=== PATIENT | female | born 1955 | race Caucasian/White ===

== ENCOUNTER 2016-09-25 17:01 | Observation (INO) | payer BC, OTHER ==
[~2016-09-25] VITALS: Ht 167.6 cm; Wt 94.6 kg
[~2016-09-25 17:01] MED LIST: ACET1TAB12 PO; ASPI-557 PO; ATEN100T77 PO; BUPR300T57 PO; CHOL10003 PO; CYCL-83 PO; DULO60CA25 PO; LEVO25TA4 PO; LOSA100T44 PO; MAGN400C PO; MELO-28 PO; MULT-37 PO; OMEP40CA11 PO; ONDA4TAB4 PO
--- OUTSIDE RECORDS SUMMARY | 2016-09-25 17:07 | XMS REPORT ---
Author Author [facility]. Organization [facility] Address [address] [place] [address] Phone [phone] Summary purpose CCDA Sent to [facility] Chief Complaint and Reason for Visit Admit Diagnosis 1 JOINT PAIN-MULT JTS Problem list No authorized problems tracked for continuity of care are available for this visit. Encounters No authorized problems tracked for encounter diagnoses are available for this visit. Medications No home medications recorded for this patient visit Allergies, adverse reactions, alerts No allergy information is available for this patient. Immunizations No immunizations recorded for this patient visit Relevant diagnostic tests and/or laboratory data RESULTS [facility] [id number] Result Normal Range Units Sed Rate (ESR) 5 0-20 MM/hr. History of procedures Procedure Code Code Type Description Date Performed Performing Physician 48195 CPT-4 RBC SED RATE AUTOMATED 10-18-2014 RADHA MAHONEY Functional status No functional or cognitive status observations are available for this visit. Vital signs No authorized vital signs are available for this visit. Social history No Social History or smoking status observations were recorded for this visit. ( Unknown if ever smoked.) Treatment Plan No treatment plan text is available for this visit. Hospital discharge instructions No discharge instruction text is available for this visit.
--- OUTSIDE RECORDS SUMMARY | 2016-09-25 17:07 | XMS REPORT ---
Author Author [facility]. Organization [facility] Address [address] [place] [address] Phone [phone] Summary purpose CCDA Sent to [facility] Chief Complaint and Reason for Visit No authorized Reason for Visit (Admitting Diagnosis) is available for this visit. Problem list No authorized problems tracked for [...] Relevant diagnostic tests and/or laboratory data RESULTS [facility] [id number] Result Normal Range Units Free T4 0.81 0.75-1.54 ng/dl TSH 3.11 0.50-6.00 uIU/mL History of procedures No procedures recorded for this patient visit. Functional status No functional or cognitive status [...]
--- OUTSIDE RECORDS SUMMARY | 2016-09-25 17:07 | XMS REPORT | Continuity of Care Document ---
Author Author [facility] Organization [facility] Address Unknown Phone Unavailable Allergies Medications Problems Date Dx Coded Attending Type Code Diagnosis Diagnosed By 05/28/2010 D 780.79 OTHER MALAISE & FATIGUE 06/25/2010 D 782.1 NONSPECIF SKIN ERUPT NEC 12/10/2010 D 455.3 EXT HEMORRHOID W/O COMPL 12/10/2010 D 569.3 RECTAL ANAL HEMORRHAGE 05/27/2011 D V72.83 OTHER SPECIF PRE-OP EXAM 08/06/2011 D 780.79 OTHER MALAISE & FATIGUE 11/04/2012 URVASHI RICHTER V72.83 OTHER SPECIF PRE-OP EXAM 03/15/2014 RADHA SIERRA 244.9 HYPOTHYROIDISM NOS 10/18/2014 RADHA SIERRA 719.49 JOINT PAIN-MULT JTS 09/13/2015 D R29.818 Other symptoms and signs involving the nervous system 09/13/2015 A R29.898 Oth symptoms and signs involving the musculoskeletal system Procedures Code [place] [address] COMPLETE CBC, AUTOMATED HOWARD DAMIAN MD 05/28/2010 03034 URINALYSIS, AUTO, W/O SCOPE HOWARD DAMIAN MD 06/25/2010 24401 ASSAY OF CK (CPK) HOWARD DAMIAN MD 06/25/2010 39739 RBC SED RATE, NONAUTOMATED HOWARD DAMINA MD 06/25/2010 78872 ANTINUCLEAR ANTIBODIES HOWARD DAMIAN MD 06/25/2010 89139 DIAGNOSTIC COLONOSCOPY HOWARD DAMIAN MD 12/10/2010 J2250 MIDAZOLAM HCL INJ/1MG HOWARD DAMIAN MD 12/10/2010 J3010 FENTANYL CITRATE INJECITON HOWARD DAMIAN MD 12/10/2010 J3490 Drugs unclassified injection HOWARD DAMIAN MD 12/10/2010 96936 METABOLIC PANEL TOTAL CA HOWARD DAMIAN MD 05/27/2011 85433 COMPLETE CBC, AUTOMATED RICKIE NÚÑEZ, HOWARD Diana 05/27/2011 47140 COMPREHEN METABOLIC PANEL RICKIE NÚÑEZ , HOWARD Diana 08/06/2011 55617 ASSAY THYROID STIM HORMONE RICKIE NÚÑEZ , HOWARD Diana 08/06/2011 95469 COMPLETE CBC, AUTOMATED RICKIE NÚÑEZ, HOWARD Diana 08/06/2011 93648 METABOLIC PANEL TOTAL CA DUSTIN ATKINS, URVASHI 11/04/2012 66205 COMPLETE CBC, AUTOMATED DUSTIN ATKINS, URVASHI 11/04/2012 90696 ASSAY THYROID STIM HORMONE DENZEL ATKINS, RADHA L 03/15/2014 89555 RBC SED RATE, AUTOMATED DENZEL ATKINS, RADHA L 10/18/2014 47252 METABOLIC PANEL TOTAL CA RICKIE NÚÑEZ, HOWARD Diana 09/13/2015 Results Test Result Range CBC - 11/04/12 12:10 Granulocyte # 3.3 x10^3 3.0-7.0 Granulocyte % 57.1 % 50-70 HCT 41.0 % 37.0-47.0 HGB 13.5 G/DL 12.0-16.0 Lymph # 2.1 x10^3 1.0-4.0 Lymph % 37.5 % 20-50 MCH 29.7 PG 27.0-31.0 MCHC 32.8 G/DL 32.0-36.0 MCV 90 FL 81-99 Woods # 0.3 x10^3 0.0-0.8 Woods % 5.4 % 1.0-9.0 MPV 8.0 FL 6.0-10.0 Platelet 236 x10^3 150-400 RBC 4.54 x10^3 4.20-5.40 RDW 13.1 % 10.0-13.0 WBC 5.7 x10^3 4.8-10.8 Basic Metabolic Panel - 11/04/12 12:10 Sodium 138 MMOLL 134-145 Potassium 4.0 MMOLL 3.6-5.0 Chloride 99 MMOLL 98-107 CO2 30 MMOLL 22-30 Glucose 92 MG/DL 75-110 BUN 18 MG/DL 9-20 Creatinine .8 MG/DL 0.8-1.7 Calcium 9.3 MG/DL 8.4-10.2 Free T4 - 03/15/14 11:45 Free T4 0.81 NG/DL 0.75-1.54 TSH - 03/15/14 11:45 TSH 3.11 UIUML 0.50-6.00 Sed Rate (ESR) - 10/18/14 17:14 Sed Rate (ESR) 5 MM/hr 0-20 Basic Metabolic Panel - 09/13/15 11:31 Sodium 142 MMOLL 134-145 Potassium 4.1 MMOLL 3.6-5.0 Chloride 102 MMOLL 98-107 CO2 27 MMOLL 22-30 Glucose 119 MG/DL 75-110 BUN 16 MG/DL 9-20 Creatinine .80 MG/DL 0.8-1.7 Calcium 9.1 MG/DL 8.4-10.2 Encounters ACCT No. Visit Date/Time Discharge Status Pt. Type Provider Facility Loc./Unit Complaint [id number] 10/18/2014 16:42:00 10/18/2014 16:42:00 DIS Outpatient DENZEL ATKINS [facility] [id number] 03/15/2014 13:17:00 03/15/2014 13:17:00 DIS Outpatient DENZEL ATKINS [facility] [id number] 11/04/2012 13:16:00 11/04/2012 13:16:00 DIS Outpatient DUSTIN ATKINS [facility] [id number] 09/13/2015 11:31:00 Document Registration [id number] 08/06/2011 10:14:00 Document Registration [id number] 05/27/2011 06:41:00 Document Registration [id number] 12/10/2010 07:30:00 Document Registration [id number] 06/25/2010 08:47:00 Document Registration [id number] 05/28/2010 12:38:00 Document Registration
--- OUTSIDE RECORDS SUMMARY | 2016-09-25 17:07 | XMS REPORT ---
Author Author [facility] Organization [facility] Address [address] [place] [address] Phone [phone] Summary purpose CCDA Sent to [facility] Chief Complaint and Reason for Visit Admit Diagnosis 1 HYPOTHYROIDISM NOS Problem list No authorized problems tracked for [...] and/or laboratory data RESULTS [facility] [id number] Result Normal Range Units Free T4 0.81 0.75-1.54 ng/dl TSH 3.11 0.50-6.00 uIU/mL History of procedures Procedure Code Code Type Description Date Performed Performing Physician [id number] CPT-4 ASSAY THYROID STIM HORMONE 03-15-2014 RADHA MAHONEY Functional status No functional or [...]
--- OUTSIDE RECORDS SUMMARY | 2016-09-25 17:07 | XMS REPORT | Continuity of Care Document ---
Author Author [facility] Organization [facility] Address Unknown Phone Unavailable Support Name Relationship Address Phone ALVINO RUANO MD Caregiver [facility] [address] [place] [address] [place] [address] THOMAS HARPER MD Caregiver [address] [place] [address] [place] [phone] HOWARD DAMIAN Caregiver [facility] [address] [place] [address] PATSY KERN Next Of Kin [address] [place] [address] Insurance Providers Payer Name Policy Number Subscriber Name Relationship Benefit Management [facility] [id number] Emily Lord 20 Self Advance Directives Directive Response Recorded Date/Time Advanced Directives Type DNR Documentation DPOA for Healthcare 12/09/13 12: 38pm Ordered Resuscitation Status Full Code 12/09/13 11:25am Resuscitation Documents on File Yes 12/09/13 12:38pm Problems Medical Problems Problem Onset Date Status Palpitations Unknown Active Hx of gastroesophageal reflux (GERD) Unknown Active Epigastric abdominal pain Unknown Active Chronic back pain Unknown Active Chronic neck pain Unknown Active Palpitations Unknown Active Chest pain Unknown Active Hypertension Unknown Active Dyslipidemia Unknown Active Chest discomfort Unknown Active Carotid bruit Unknown Active Medications Medication Dose Route Sig Days/Qty Instructions Order Date Discontinued Date Status Hydralazine/Reserpin/Hctz 1 Tab PO DAILY 04/03/10 11/12/12 Discontinued Fluoxetine Hcl 20 Mg PO DAILY 04/03/10 11/12/12 Discontinued Bupropion Hcl 150 Mg PO EVERY OTHER DAY 04/03/10 11/12/12 Discontinued Simvastatin 40 Mg PO BEDTIME 04/03/10 Active Lisinopril 40 Mg PO DAILY 04/03/10 Active Omeprazole 20 Mg PO TWICE A DAY 04/03/10 11/12/12 Discontinued Hydrocodone Bit/Acetaminophen 1 Tab PO NEEDED 04/03/10 11/12/12 Discontinued Acetaminophen 1,300 Mg PO FOUR TIMES DAILY 06/06/11 11/12/12 Discontinued Imipramine Hcl 10 Mg PO BEDTIME 06/06/11 11/12/12 Discontinued Cholecalciferol 2,000 Unit PO DAILY 06/06/11 Active Omeprazole 40 Mg PO TWICE A DAY 11/12/12 Active Meloxicam 7.5 Mg PO TWICE A DAY 11/12/12 Active Acetaminophen 1,000 Mg PO TWICE A DAY 11/12/12 Active Hydrocodone Bit/Acetaminophen 1-2 Tab PO EVERY 4-6 HOURS PRN PAIN 30 Qty 11/28/13 Active Cyclobenzaprine Hcl 10 Mg PO THREE TIMES A DAY PRN PRN ORDERS Active Bupropion Hcl 150 Mg PO DAILY 12/09/13 Active Duloxetine Hcl 60 Mg PO DAILY 12/09/13 Active Magnesium Oxide 400 Mg PO DAILY 12/09/13 Active Triamterene/Hydrochlorothiazid 1 Cap PO DAILY 12/09/13 Active Atenolol 100 Mg PO BEDTIME 12/09/13 Active Social History Social History Problem Response Recorded Date/Time Smoking Status Never smoker 12/09/2013 12:39pm Chewing Tobacco Status No 12/09/2013 10:23am Hx Substance Use No 12/09/2013 10:23am Hx Alcohol Use No 12/09/2013 10:23am Has the pt used tobacco in the last 12 months No 12/09/2013 12:39pm Query Response Start Date Stop Date Smoking Status Never smoker Hospital Discharge Instructions No hospital discharge instructions. Plan of Care No plan of care. Functional Status Query Response Date Recorded Physical Hygiene Self December 09, 2013 8:25pm Disabilities Visual December 09, 2013 8:25pm Devices Used Glasses December 09, 2013 8:25pm Dressing Self December 09, 2013 8:25pm Ambulation Self December 09, 2013 8:25pm Diet Self December 09, 2013 8:25pm Mental Status Alert Oriented December 09, 2013 8:25pm Disabilities Visual December 09, 2013 8:25pm Devices Used Glasses December 09, 2013 8:25pm Physical Hygiene Self December 09, 2013 8:25pm Dressing Self December 09, 2013 8:25pm Ambulation Self December 09, 2013 8:25pm Diet Self December 09, 2013 8:25pm Allergies, Adverse Reactions, Alerts Allergen Type Severity Reaction Status Last Updated Morphine Allergy Intermediate HIVES/SKIN PEELS Active 12/09/13 Ibuprofen Adverse Reaction Mild Cannot take it due to having stomach problems Active 12/09/13 Cephalexin Adverse Reaction Unknown N/V Active 12/09/13 Doxycycline Allergy Severe THROAT SWELLS Active 12/09/13 Influenza Virus Vacc,Specific Allergy Unknown SWELLING Active 12/09/13 Tramadol Adverse Reaction Mild SWEATS; BP ISSUES Active 12/09/13 Immunizations Name Given Type Hx Influenza Vaccination Y Mar Historical Hx Pneumococcal Vaccination No Historical Hx Influenza Vaccination Y Mar Historical Vital Signs Acute Vital Signs Vital Response Date/Time Temperature (Fahrenheit) 95.9 deg F (96.8 - 99.1) Temperature (Calculated Celsius) 35.80167 degrees C (36.0 - 37.3) Temperature Source Oral Pulse Rate (adult) 73 bpm (60 - 100) Oxygen Delivery Method Room Air Blood Pressure 115/67 mm Hg Blood Pressure Source Automatic Cuff Height 5 ft 6 in Weight 220 lb Body Mass Index 35.0 kg/m^2 Results Test Source Date Result Interp. Ref. Range Comments Activated Partial Thromboplast Time December 09, 2013 10:05am 32.1 SEC N 24- 36 Alanine Aminotransferase (ALT/SGPT) December 09, 2013 10:05am 41 U/L N 9-52 Albumin December 09, 2013 10:05am 4.6 G/DL N 3.5-5.0 Albumin/Globulin Ratio December 09, 2013 10:05am 1.4 RATIO N 1.1-2.2 Alkaline Phosphatase December 09, 2013 10:05am 92 U/L N 38-126 Anion Gap December 09, 2013 10:05am 14 MEQ/L N 5-15 Aspartate Amino Transf (AST/SGOT) December 09, 2013 10:05am 33 U/L N 14-36 BUN/Creatinine Ratio December 09, 2013 10:05am 31 RATIO H 6-26 Basophils # (Auto) December 09, 2013 10:05am 0.0 T/MM3 N 0-0.2 Basophils (%) (Auto) December 09, 2013 10:05am 0.4 % N 0-2 Blood Urea Nitrogen December 09, 2013 10:05am 34.0 MG/DL H 7-17 Calcium Level December 09, 2013 10:05am 9.4 MG/DL N 8.4-10.2 Calculated Osmolality December 09, 2013 10:05am 272 MOSM/KG N 261-280 Carbon Dioxide Level December 09, 2013 10:05am 29 MEQ/L N 22-30 Chloride Level December 09, 2013 10:05am 94 MEQ/L L 98-107 Creatinine December 09, 2013 10:05am 1.1 MG/DL N 0.7-1.2 Eosinophils # (Auto) December 09, 2013 10:05am 0.0 T/MM3 N 0-0.5 Eosinophils (%) (Auto) December 09, 2013 10:05am 0.1 % N 0-4 Globulin December 09, 2013 10:05am 3.2 G/DL N 2.4-3.6 Glucose Level December 09, 2013 10:05am 104 MG/DL N 65-110 Hematocrit December 09, 2013 10:05am 41.7 % N 36-46 Hemoglobin December 09, 2013 10:05am 14.0 GM/DL N 12-16 Lymphocytes # (Auto) December 09, 2013 10:05am 2.3 T/MM3 N 1-4.8 Lymphocytes (%) (Auto) December 09, 2013 10:05am 29.4 % N 23-45 Magnesium Level December 09, 2013 10:05am 1.8 MG/DL N 1.6-2.3 Mean Corpuscular Hemoglobin December 09, 2013 10:05am 30.8 UUG N 26-34 Mean Corpuscular Hemoglobin Concent December 09, 2013 10:05am 33.6 GM/DL N 31-37 Mean Corpuscular Volume December 09, 2013 10:05am 91.6 UM3 N 80-100 Mean Platelet Volume December 09, 2013 10:05am 10.7 UM3 N 9.4-12.4 Monocytes # (Auto) December 09, 2013 10:05am 0.8 T/MM3 N 0-0.8 Monocytes (%) (Auto) December 09, 2013 10:05am 10.5 % H 0-9.0 Mumps Virus IgG Antibody May 18, 2009 9:54am Positive - Neutrophils # (Auto) December 09, 2013 10:05am 4.6 T/MM3 N 1.8-7.7 Neutrophils (%) (Auto) December 09, 2013 10:05am 59.5 % N 33-66 Platelet Count December 09, 2013 10:05am 244 T/MM3 N 130-400 Potassium Level December 09, 2013 10:05am 3.5 MEQ/L L 3.6-5 Prothromb Time International Ratio December 09, 2013 10:05am 0.97 N 0.81- 1.09 THERAPUTIC RANGE=2.00-3.00 FOR ANTI-THROMBOSIS THERAPUTIC RANGE=2.50- 3.50 FOR IMPLANTED VALVE RDW Standard Deviation December 09, 2013 10:05am 41.3 FL N 36.9-50.2 Red Blood Count December 09, 2013 10:05am 4.55 M/MM3 N 4.00-5.20 Rubella Screen May 18, 2009 9:54am Negative - Rubeola (Measles) IgG Antibody May 18, 2009 9:54am Positive - Sodium Level December 09, 2013 10:05am 137 MEQ/L N 134-144 Thyroid Stimulating Hormone (TSH) December 09, 2013 10:05am 4.79 MIU/L H 0.47-4.68 Total Bilirubin December 09, 2013 10:05am 0.50 MG/DL N 0.20-1.30 Total Protein December 09, 2013 10:05am 7.8 G/DL N 6.3-8.2 Troponin I December 09, 2013 3:45pm < 0.012 ng/ml 0-0.12 Urine Bacteria December 09, 2013 3:30pm 1+ H - Has specimen been collected/ obtained? Y Urine Bilirubin December 09, 2013 3:30pm Negative - Has specimen been collected/obtained? Y Urine Blood December 09, 2013 3:30pm Trace-lysed H - Has specimen been collected/obtained? Y Urine Collection Type December 09, 2013 3:30pm Cleancatch-midstream - Has specimen been collected/obtained? Y Urine Color December 09, 2013 3:30pm Yellow - Has specimen been collected /obtained? Y Urine Glucose (UA) December 09, 2013 3:30pm Negative - Has specimen been collected/obtained? Y Urine Ketones December 09, 2013 3:30pm Negative - Has specimen been collected/obtained? Y Urine Leukocyte Esterase December 09, 2013 3:30pm 3+ H - Has specimen been collected/obtained? Y Urine Nitrite December 09, 2013 3:30pm Negative - Has specimen been collected/obtained? Y Urine Protein December 09, 2013 3:30pm Negative - Has specimen been collected/obtained? Y Urine RBC December 09, 2013 3:30pm None seen /HPF - Has specimen been collected/obtained? Y Urine Specific [place] December 09, 2013 3:30pm <=1.005 L - Has specimen been collected/obtained? Y Urine Squamous Epithelial Cells December 09, 2013 3:30pm 20-50 - Has specimen been collected/obtained? Y Urine Turbidity December 09, 2013 3:30pm Clear - Has specimen been collected/obtained? Y Urine Urobilinogen December 09, 2013 3:30pm 0.2 EU/DL - Has specimen been collected/obtained? Y Urine WBC December 09, 2013 3:30pm 50-200 /HPF H - Has specimen been collected/obtained? Y Urine WBC Clumps December 09, 2013 3:30pm Few - Has specimen been collected/obtained? Y Urine pH December 09, 2013 3:30pm 6.5 - Has specimen been collected/ obtained? Y White Blood Count December 09, 2013 10:05am 7.7 T/MM3 N 4.5-11.0 Chemistry Specimen Hemolysis December 09, 2013 3:45pm < 15 0-25 0-25: No Hemolysis.26-70: Slight Hemolysis - can falsely elevate K and Urine Protein. 71-285: Moderate Hemolysis - can falsely elevate K, Troponin I, CA 19-9, PTH, CSF GLucose, and Urine Protein, and can falsely decrease Phenytoin. 286-999: Gross Hemolysis - can falsely elevate K, Troponin I, CA 19-9, PTH, CSF Glucose, and Urine Protine, and can falsely decrease Phenytoin. Recommend specimen recollection. Lab Scanned Report June 25, 2011 1:44pm LAB TEST FORM REQUEST [id number] - Methicillin-Resist S.aureus DNA PCR May 27, 2011 11:28am Negative - Turbidity December 09, 2013 10:05am < 20 0-20 Glomerular Filtration Rate Calc December 09, 2013 10:05am 51 - Immature Granulocyte # (Auto) December 09, 2013 10:05am 0.01 T/MM3 N 0.00- 0.03 Immature Granulocyte % (Auto) December 09, 2013 10:05am 0.1 % N 0.0-0.5 Icterus Index December 09, 2013 10:05am < 2 0-7 MRSA Specimen Source May 27, 2011 11:28am Nasal - ZB-Lcu-Z-Type Natriuretic Peptide December 09, 2013 10:05am 82 PG/ML N 0- 175 Rule in cut points: <50 years old=450; 50-75 years old=900; >75 years old=1800; When utilizing ProBNP rule-in cut points, adjustment for impaired renal function is typically not required. Gram Stain Knee, Intraoperative Site-Right June 10, 2011 11:56am Procedures Procedure Status Date Provider(s) THER/PROPH/DIAG IV INF INIT completed 11/28/13 TX/PRO/DX INJ NEW DRUG ADDON completed 11/28/13 TX/PRO/DX INJ NEW DRUG ADDON completed 11/28/13 TX/PRO/DX INJ NEW DRUG ADDON completed 11/28/13 Encounters Encounter Location Date/Time Departed Emergency Room [facility] 11/28/13 3:55pm
--- OUTSIDE RECORDS SUMMARY | 2016-09-25 17:07 | XMS REPORT | Continuity of Care Document ---
Author Author [facility] Organization [facility] Address Unknown Phone Unavailable Support Name Relationship Address Phone ALVINO RUANO MD Caregiver [facility] [address] , [place] [address] [place] [address] THOMAS HARPER MD Caregiver [address] [place] [address] [place] [phone] HOWARD DAMIAN Caregiver [facility] [address] [place] [address] PATSY KERN Next Of Kin [address] [place] [address] Insurance Providers Payer Name Policy Number Subscriber Name Relationship Benefit Management [facility] [id number] Emily Lord 20 Self Advance Directives Directive [...] F (96.8 - 99.1) Temperature (Calculated Celsius) 35.05072 degrees C (36.0 - 37.3) Temperature Source [...] Has specimen been collected/obtained? Y Urine Specific [place] December 09, 2013 3:30pm <=1.005 L - [...] 25, 2011 1:44pm LAB TEST FORM REQUEST [id number] - Methicillin-Resist S.aureus DNA PCR May 27, [...] Source May 27, 2011 11:28am Nasal - DQ-Kft-J-Type Natriuretic Peptide December 09, 2013 10:05am 82 [...] Encounters Encounter Location Date/Time Departed Emergency Room [facility] 11/28/13 3:55pm
--- OUTSIDE RECORDS SUMMARY | 2016-09-25 17:07 | XMS REPORT | Continuity of Care Document ---
Author Author [facility] Organization [facility] Address Unknown Phone Unavailable Support Name Relationship Address Phone ALVINO RUANO MD Caregiver [facility] [address] , [place] [address] [place] [address] THOMAS HARPER MD Caregiver [address] [place] [address] [place] [phone] HOWARD DAMIAN Caregiver [facility] [address] [place] [address] PATSY KERN Next Of Kin [address] [place] [address] Insurance Providers Payer Name Policy Number Subscriber Name Relationship Benefit Management [facility] [place] [place] [id number] Emily Lord 20 Self Advance Directives Directive [...] F (96.8 - 99.1) Temperature (Calculated Celsius) 35.00475 degrees C (36.0 - 37.3) Temperature Source [...] Has specimen been collected/obtained? Y Urine Specific [place] December 09, 2013 3:30pm <=1.005 L - [...] 25, 2011 1:44pm LAB TEST FORM REQUEST [id number] - Methicillin-Resist S.aureus DNA PCR May 27, [...] Source May 27, 2011 11:28am Nasal - XV-Ofh-N-Type Natriuretic Peptide December 09, 2013 10:05am 82 [...] Encounters Encounter Location Date/Time Departed Emergency Room [facility] 11/28/13 3:55pm
--- OUTSIDE RECORDS SUMMARY | 2016-09-25 17:07 | XMS REPORT | Referral Summary ---
Author Author [facility] Organization [facility] Address Unknown Phone Unavailable Care Team Providers Care Preparation Department Supervisor Name Role Phone Lebron Morgan Primary Care Physician [phone] Encounter [facility] [id number] Date(s): 01/21/16 - 01/21/16 [facility] [address] [place] [address] [phone] Discharge Disposition: 01-Home or Self Care Attending Physician: Anya Lou MD Admitting Physician: Anya Lou MD Vital Signs No data available for this section Problem List No data available for this section Allergies, Adverse Reactions, Alerts Substance Reaction Severity Status cephalexin RASH/ GI UPSET Active morphine RASH Active Medications No data available for this section Results No data available for this section Immunizations No data available for this section Procedures No data available for this section Social History No data available for this section Assessment and Plan No data available for this section
--- OUTSIDE RECORDS SUMMARY | 2016-09-25 17:07 | XMS REPORT ---
Author Author [facility]. Organization [facility] Address [address] [place] [address] Phone [phone] Summary purpose CCDA Sent to [facility] Chief Complaint and Reason for Visit No authorized Reason for Visit (Admitting Diagnosis) is available for this visit. Problem list No authorized problems tracked for continuity of care are available for this visit. Encounters No authorized problems tracked for encounter diagnoses are available for this visit. Medications No medications recorded for this patient visit Allergies, adverse reactions, alerts No allergy information is available for this patient. Immunizations No immunizations recorded for this patient visit Relevant diagnostic tests and/or laboratory data RESULTS Chemistry Group [id number] Result Normal Range Units Sodium 142 134-145 mmol/L Potassium 4.1 3.6-5.0 mmol/L Chloride 102 98-107 mmol/L CO2 27 22-30 mmol/L Glucose H 119 75-110 mg/dl BUN 16 9-20 mg/dl Creatinine .80 0.8-1.7 mg/dl Calcium 9.1 8.4-10.2 mg/dl History of procedures No procedures recorded for [...]
--- OUTSIDE RECORDS SUMMARY | 2016-09-25 17:20 | XMS REPORT | Continuity of Care Document ---
Author Author [facility] Organization [facility] Address Unknown Phone Unavailable Support Name Relationship Address Phone ALVINO RUANO MD Caregiver [facility] [address] [facility] , [place] [address] [place] [address] THOMAS HARPER MD Caregiver [address] [place] [address] [place] [phone] HOWARD DAMIAN Caregiver [facility] [address] [place] [address] PATSY KERN Next Of Kin [address] [place] [address] Insurance Providers Payer Name Policy Number Subscriber Name Relationship Benefit Management [facility] [id number] Emily Lord 20 Self Advance Directives Directive [...] F (96.8 - 99.1) Temperature (Calculated Celsius) 35.54827 degrees C (36.0 - 37.3) Temperature Source [...] Has specimen been collected/obtained? Y Urine Specific [place] December 09, 2013 3:30pm <=1.005 L - [...] 25, 2011 1:44pm LAB TEST FORM REQUEST [id number] - Methicillin-Resist S.aureus DNA PCR May 27, [...] Source May 27, 2011 11:28am Nasal - LN-Emb-Q-Type Natriuretic Peptide December 09, 2013 10:05am 82 [...] Encounters Encounter Location Date/Time Departed Emergency Room [facility] 11/28/13 3:55pm
--- OUTSIDE RECORDS SUMMARY | 2016-09-25 17:20 | XMS REPORT | Continuity of Care Document ---
Author Author [facility] Organization [facility] Address Unknown Phone Unavailable Support Name Relationship Address Phone ALVINO RUANO MD Caregiver [facility]ASCULAR [facility]ARE [address] [facility] , [place] [address] [place] [address] THOMAS HARPER MD Caregiver [address] [place] [address] [place] [phone] HOWARD DAMIAN Caregiver [facility] [address] [place] [address] PATSY KERN Next Of Kin [address] [place] [address] Insurance Providers Payer Name Policy Number Subscriber Name Relationship Benefit Management [facility] [id number] Emily Lord 20 Self Advance Directives Directive [...] F (96.8 - 99.1) Temperature (Calculated Celsius) 35.56301 degrees C (36.0 - 37.3) Temperature Source [...] Has specimen been collected/obtained? Y Urine Specific [place] December 09, 2013 3:30pm <=1.005 L - [...] 25, 2011 1:44pm LAB TEST FORM REQUEST [id number] - Methicillin-Resist S.aureus DNA PCR May 27, [...] Source May 27, 2011 11:28am Nasal - OJ-Gvk-G-Type Natriuretic Peptide December 09, 2013 10:05am 82 [...] Encounters Encounter Location Date/Time Departed Emergency Room [facility] 11/28/13 3:55pm
--- OUTSIDE RECORDS SUMMARY | 2016-09-25 17:20 | XMS REPORT | Continuity of Care Document ---
Author Author [facility] Organization [facility] Address Unknown Phone Unavailable Allergies Medications Problems [...] Procedures Code [place] [address] COMPLETE CBC, AUTOMATED HOWARD DAMIAN MD 05/28/2010 50694 URINALYSIS, AUTO, W/O SCOPE HOWARD DAMIAN MD 06/25/2010 96458 ASSAY OF CK (CPK) HOWARD DAMIAN MD 06/25/2010 15573 RBC SED RATE, NONAUTOMATED HOWARD DAMIAN MD 06/25/2010 99874 ANTINUCLEAR ANTIBODIES HOWARD DAMIAN MD 06/25/2010 84575 DIAGNOSTIC COLONOSCOPY HOWARD DAMIAN MD 12/10/2010 J2250 MIDAZOLAM HCL INJ/1MG HOWARD DAMIAN MD 12/10/2010 J3010 FENTANYL CITRATE INJECITON HOWARD DAMIAN MD 12/10/2010 J3490 Drugs unclassified injection HOWARD DAMIAN MD 12/10/2010 08064 METABOLIC PANEL TOTAL CA HOWARD DAMIAN MD 05/27/2011 63991 COMPLETE CBC, AUTOMATED RICKIE NÚÑEZ, HOWARD Diana 05/27/2011 07034 COMPREHEN METABOLIC PANEL RICKIE NÚÑEZ , HOWARD Diana 08/06/2011 98402 ASSAY THYROID STIM HORMONE RICKIE NÚÑEZ , HOWARD Diana 08/06/2011 25822 COMPLETE CBC, AUTOMATED RICKIE NÚÑEZ, HOWARD Diana 08/06/2011 46404 METABOLIC PANEL TOTAL CA DUSTIN ATKINS, URVASHI 11/04/2012 33802 COMPLETE CBC, AUTOMATED DUSTIN ATKINS, URVASHI 11/04/2012 20673 ASSAY THYROID STIM HORMONE DENZEL ATKINS, RADHA L 03/15/2014 38444 RBC SED RATE, AUTOMATED DENZEL ATKINS, RADHA L 10/18/2014 25802 METABOLIC PANEL TOTAL CA RICKIE NÚÑEZ, HOWARD Diana 09/13/2015 Results Test Result Range CBC - 11/04/12 12:10 Granulocyte # 3.3 x10^3 3.0-7.0 Granulocyte % 57.1 % 50-70 HCT 41.0 % 37.0-47.0 HGB 13.5 G/DL 12.0-16.0 Lymph # 2.1 x10^3 1.0-4.0 Lymph % 37.5 % 20-50 MCH 29.7 PG 27.0-31.0 MCHC 32.8 G/DL 32.0-36.0 MCV 90 FL 81-99 Gallia # 0.3 x10^3 0.0-0.8 Gallia % 5.4 % 1.0-9.0 MPV 8.0 FL [...] Status Pt. Type Provider Facility Loc./Unit Complaint [id number] 10/18/2014 16:42:00 10/18/2014 16:42:00 DIS Outpatient DENZEL ATKINS [facility] [id number] 03/15/2014 13:17:00 03/15/2014 13:17:00 DIS Outpatient DENZEL ATKINS [facility] [id number] 11/04/2012 13:16:00 11/04/2012 13:16:00 DIS Outpatient DUSTIN ATKINS [facility] [id number] 09/13/2015 11:31:00 Document Registration [id number] 08/06/2011 10:14:00 Document Registration [id number] 05/27/2011 06:41:00 Document Registration [id number] 12/10/2010 07:30:00 Document Registration [id number] 06/25/2010 08:47:00 Document Registration [id number] 05/28/2010 12:38:00 Document Registration
--- OUTSIDE RECORDS SUMMARY | 2016-09-25 17:20 | XMS REPORT | Continuity of Care Document ---
Author Author [facility] Organization [facility] Address Unknown Phone Unavailable Support Name Relationship Address Phone ALVINO RUANO MD Caregiver [facility] [address] [facility] , [place] [address] [place] [address] THOMAS HARPER MD Caregiver [address] [place] [address] [place] [phone] HOWARD DAMIAN Caregiver [facility] [address] [place] [address] PATSY KERN Next Of Kin [address] [place] [address] Insurance Providers Payer Name Policy Number Subscriber Name Relationship Benefit Management [facility] [id number] Emily Lord 20 Self Advance Directives Directive [...] F (96.8 - 99.1) Temperature (Calculated Celsius) 35.18946 degrees C (36.0 - 37.3) Temperature Source [...] Has specimen been collected/obtained? Y Urine Specific [place] December 09, 2013 3:30pm <=1.005 L - [...] 25, 2011 1:44pm LAB TEST FORM REQUEST [id number] - Methicillin-Resist S.aureus DNA PCR May 27, [...] Source May 27, 2011 11:28am Nasal - ST-Tco-V-Type Natriuretic Peptide December 09, 2013 10:05am 82 [...] Encounters Encounter Location Date/Time Departed Emergency Room [facility] 11/28/13 3:55pm
[2016-09-25] MEDS ORDERED: ONDANSETRON 4mg/2ml INJECTION IV ONE (17:30)
[2016-09-25 17:31] LABS: BASOPHILS % (AUTO) 0.1 % (0-2); EOSINOPHILS % (AUTO) 0.1 % (0-4); HCT - HEMATOCRIT 38.9 % (36-46); HGB - HEMOGLOBIN 13.2 GM/DL (12-16); IMMATURE GRANULOCYTE # (AUTO) 0.01 T/MM3 (0.00-0.03); IMMATURE GRANULOCYTE % (AUTO) 0.1 % (0.0-0.5); LYMPHOCYTES # (AUTO) 3.4 T/MM3 (1-4.8); LYMPHOCYTES % (AUTO) 40.7 % (23-45); MEAN CORPUSCULAR HGB 30.8 UUG (26-34); MEAN CORPUSCULAR HGB CONC(MCHC 33.9 GM/DL (31-37); MEAN CORPUSCULAR VOLUME 90.9 UM3 (80-100); MEAN PLATELET VOLUME 11.2 UM3 (9.4-12.4); MONOCYTES # (AUTO) 0.6 T/MM3 (0-0.8); MONOCYTES % (AUTO) 7.6 % (0-9.0); NEUTROPHILS #(AUTO)-ABSOLUTE 4.3 T/MM3 (1.8-7.7); NEUTROPHILS % (AUTO) 51.4 % (33-66); RED BLOOD COUNT 4.28 M/MM3 (4.00-5.20); WBC - WHITE BLOOD COUNT 8.3 T/MM3 (4.5-11.0)
[2016-09-25] MEDS ORDERED: SIMV40TA5 PO (17:36)
[2016-09-25] MEDS ORDERED: LOSA50TA52 PO (17:36)
[2016-09-25] MEDS ORDERED: TRIA-56 PO (17:36)
[2016-09-25] MEDS ORDERED: BUPR-51 PO (17:36)
[2016-09-25] MEDS ORDERED: OMEP40CA52 PO (17:36)
[2016-09-25] MEDS ORDERED: DULO60CA56 PO (17:36)
[2016-09-25] MEDS ORDERED: ATEN50TA PO (17:36)
[2016-09-25] MEDS ORDERED: LEVO50TA11 PO (17:36)
[2016-09-25 17:43] LABS: ACETAMINOPHEN < 10 UG/ML (10-30); ALBUMIN 4.6 G/DL (3.5-5.0); ALBUMIN/GLOBULIN RATIO 1.5 RATIO (1.1-2.2); ALKALINE PHOSPHATASE 72 U/L (38-126); ALT (SGPT) 28 U/L (9-52); ANION GAP 14 MEQ/L (5-15); AST (SGOT) 27 U/L (14-36); BUN/CREATININE RATIO 23 RATIO (6-26); CALCIUM 9.9 MG/DL (8.4-10.2); CHLORIDE 94 MEQ/L (98-107); CO2 - CARBON DIOXIDE 30 MEQ/L (22-30); CREATININE 0.8 MG/DL (0.7-1.2); ETHANOL <10 MG/DL (<10); GLOMERULAR FILTRATION RATE 73; GLUCOSE 98 MG/DL (65-110); POTASSIUM 3.5 MEQ/L (3.6-5); SALICYLATE < 1.0 MG/DL (2-20); SODIUM 138 MEQ/L (134-144); TOTAL PROTEIN 7.6 G/DL (6.3-8.2)
[2016-09-25 18:12] LABS: INR 1.02 (0.76-1.04); PROTHROMBIN TIME 11.1 SEC (9.31-12.49); PTT 28.5 SEC (24-36)
--- NOTE | 2016-09-25 18:14 | ERPDOC ---
Departure Disposition Decision Date: Sep 25, 2016 Disposition Decision Time: 19:45 () Disposition: 01 DISCHARGED HOME, SELF-CARE Impression Impression (MEMO ALANIZ DO) Impression: Primary Impression: Syncope and collapse Additional Impression: Altered mental status Altered mental status type: unspecified Qualified Codes: R41.82 - Altered mental status, unspecified Severity: Severe () Condition: Improved Seen By: Physician only () Referrals: HOWARD DAIMAN (Family) Problems/Meds/Labs Reviewed?: Yes Medications reviewed and manag: Yes () Follow up care ordered?: Yes Mental Status: Alert () HPI - General Medical General Chief Complaint: Altered Mental Status Stated Complaint: CONFUSION,ALTERED LOC,DELUNA Time Seen by Provider: 17:13 Source: patient, family, EMS Exam Limitations: other (AMS) (MEMO ALANIZ DO) Time Seen by Provider: 18:26 () HPI - General Medical Initial Comments 61-year-old female presents the emergency department with a chief complaint of altered mental status. Patient was at home leading a mare by her halter immediately prior to arrival to the emergency department when the daughter stepped away for a couple of minutes. The daughter returned and found the patient lying on the ground not responding to her. Patient did come around and has been confused per the daughter. Patient patient notes a moderate dull frontal headache without radiation. Patient is amnestic to the events which happened. Patient also notes diffuse generalized low back pain. Patient denies being ill recently. No other complaints or associated symptoms. Patient symptoms have been persisted in nature since onset. Patient was at home when her symptoms began. She does not note any exacerbating or remitting factors. She denies any abuse or use of illicit or mind altering substances. The events were not witnessed. Occurred At: home Onset: other (Improving) (MEMO ALANIZ DO) Allergies: Coded Allergies: doxycycline (Verified Allergy, Severe, THROAT SWELLS, 09/25/16) morphine (Verified Allergy, Intermediate, HIVES/SKIN PEELS, 09/25/16) influenza virus vaccine, specific (Verified Allergy, Unknown, SWELLING, ) EGG FREE VACCINE ONLY nickel (Unverified Allergy, Unknown, 09/25/16) trazodone (Unverified Allergy, Unknown, 09/25/16) tramadol (Verified Adverse Reaction, Mild, SWEATS; BP ISSUES, 09/25/16) cephalexin (Verified Adverse Reaction, Unknown, N/V, 09/25/16) Past History Past Medical History Metabolic: hypercholesterolemia, hypertension ENMT: allergies Musculoskeletal: back pain, neck pain, other Psychological: depression (MEMO ALANIZ DO) Surgical History General: appendix, gallbladder Reproductive/: hysterectomy Joint: knee, shoulder (MEMO ALANIZ DO) Family History Family PMH: FOUND: CAD, PA, diabetes, hypertension (MEMO ALANIZ DO) Vaccines Hx Influenza Vaccination: Yes (MAR 2014-EGG FREE) Hx Pneumococcal Vaccination: No (MEMO ALANIZ DO) Social History Smoking Status: Never smoker Substance Use Type: does not use Alcohol Intake: none (MEMO ALANIZ DO) Review of Systems Constitutional Constitutional: DENIES: chills, fever (MEMO ALANIZ DO) Eyes General: DENIES: erythema, exudate Lids/Accessories: DENIES: erythema, swelling (MEMO ALANIZ DO) ENMT Ears: DENIES: drainage, erythema Hearing: DENIES: hearing loss Balance: DENIES: ataxia, falling to one side Sinuses: DENIES: congestion, pain Nose: DENIES: nosebleeds, pain Mouth/Throat: DENIES: painful swallowing, sore throat Teeth: DENIES: pain Jaw: DENIES: pain (MEMO ALANIZ DO) Cardiovascular Cardiac: DENIES: chest pain, dyspnea on exertion Rhythm/Rate: DENIES: irregular beat, palpitations Vascular: DENIES: pedal edema, unilateral swelling (MEMO ALANIZ DO) Pulmonary Respiratory: DENIES: cough, dyspnea, pleuritic chest pain, sputum, tachypnea ( MEMO ALANIZ DO) GI Upper Abdomen: DENIES: nausea, pain, vomiting Lower Abdomen: DENIES: diarrhea, pain (MEMO ALANIZ DO) General: DENIES: dysuria, frequency (MEMO ALANIZ DO) Musculoskeletal General: tenderness, DENIES: joint pain (MEMO ALANIZ DO) Integumentary Skin: DENIES: itching, rash (MEMO ALANIZ DO) Neurological General: headache, DENIES: numbness, weakness (MEMO ALANIZ DO) Psychiatric Psychiatric: DENIES: emotional instability, suicidal ideation/attempt (MEMO ALANIZ DO) Hematologic/Lymphatic Hematologic/Lymphatic: DENIES: frequent nosebleeds, lymphadenopathy (MEMO ALANIZ DO) Allergic/Immunological Allergic/Immunoligical: DENIES: allergic reactions, hives (MEMO ALANIZ DO) Physical Exam General General Nourishment: well nourished, well developed, appears stated age, no acute distress, adult General Body Habitus: well groomed (MEMO ALANIZ DO) Vitals and Pain ( M DO) Vitals and Pain Weight: Kilograms: Height (feet): 5 Height (inches): 5.00 Triage Pain Scale: (MEMO ALANIZ DO) RN VS reviewed by Provider: Yes (MEMO ALANIZ DO) Normal Exams: Head: Normocephalic w/o trauma Eyes: Pupils are PERRLA w/ EOMI, No scleral icterus, irritation, or foreign bodies noted ENMT: No facial trauma, nasal exudates, pharyngeal erythema, or exudates are noted Dental: No fractured, loose, or missing teeth noted Chest/Resp: Clear all velasco, with good airflow, and symmetry bilaterally CV: Regular rate and rhythm, without murmur or gallop, Pulses 2+ all extremities, capillary refill, <2 seconds all ext., no pedal edema noted Abdomen: Bowel sounds positive, soft, non-tender, non-distended, no hepatosplenomegaly, masses or bruits noted Lymphatic: No lymphadenopathy, or lymphedema noted Musculoskeletal: No tenderness, or deformity noted, good range of motion, all extremities Integumentary: No rashes, hives, or bruising noted, hair and nails, without abnormality Neurologic: Patient is alert, and oriented, cranial nerves, motor/sensory/ cerebellar, exams w/o gross deficits, to observation Psychiatric: Patient exhibits, appropriate attention, emotion and affect (MEMO ALANIZ DO) Neck (brief) Comments No mid-line tenderness or deformity of the cervical spine. (MEMO ALANIZ DO) Musculoskeletal (brief) Comments Back - No midline tenderness or deformity to the thoracic or lumbar spine. Generalized lumbar tenderness to palpation. (MEMO ALANIZ DO) Differential Diagnoses Considering: Hypo/Hyperglycemia, Medication Effect, Metabolic, Seizure, UTI (MEMO ALANIZ DO) Progress Results/Orders Orders Procedure Category Date Status Time Cbc W/Auto LAB 09/25/16 Complete Diff-Reflex Manual Cmp - Comprehensive LAB 09/25/16 Complete Metabolic Troponin I W LAB 09/25/16 Complete Hemolysis Index Ua, Dip Wreflex LAB 09/25/16 Complete Microsc & Plasma Center Nurse 17:13 Catheterize For Ua CATALINO 09/25/16 Complete 17:13 Ct Head W/O Contrast CT 09/25/16 Resulted 17:13 Ct Chest/Abd/Pelvis Wc CT 09/25/16 Resulted 17:13 Ct Thoracic Spine W/O CT 09/25/16 Resulted Contrast 17:13 Ct Lumbar Spine W/O CT 09/25/16 Resulted Contrast 17:13 Drug Screen LAB 09/25/16 Complete Urine-Test At [facility] 17:17 Ethanol LAB 09/25/16 Complete Salicylate LAB 09/25/16 Complete Acetaminophen LAB 09/25/16 Complete Ondansetron Inj PHA 09/25/16 Complete (Zofran) 17:30 Ct Cervical Spine W/O CT 09/25/16 Resulted Contrast 17:39 INR LAB 09/25/16 Complete PTT LAB 09/25/16 Complete Prolactin LAB 09/25/16 Complete 18:22 Iohexol (Omnipaque) PHA 09/25/16 Complete 18:25 Normal Saline (Ns) PHA 09/25/16 Complete 18:25 Saline Flush (Iv PHA 09/25/16 Complete Flush) 18:25 Place In Facility: ED ADM 09/25/16 Transmitted ([facility]) Lab Results Laboratory Tests Test 09/25/16 17:13 09/25/16 18:19 09/25/16 18:43 White Blood Count 8.3T/MM3 Red Blood Count 4.28M/MM3 Hemoglobin 13.2GM/DL Hematocrit 38.9% Mean Corpuscular Volume 90.9UM3 Mean Corpuscular Hemoglobin 30.8UUG Mean Corpuscular Hemoglobin Concent 33.9GM/DL RDW Standard Deviation 39.2FL Platelet Count 206T/MM3 Mean Platelet Volume 11.2UM3 Immature Granulocyte % (Auto) 0.1% Neutrophils (%) (Auto) 51.4% Lymphocytes (%) (Auto) 40.7% Monocytes (%) (Auto) 7.6% Eosinophils (%) (Auto) 0.1% Basophils (%) (Auto) 0.1% Absolute Immature Granulocyte (auto 0.01T/MM3 Absolute Neutrophils (auto) 4.3T/MM3 Absolute Lymphocytes (auto) 3.4T/MM3 Absolute Monocytes (auto) 0.6T/MM3 Absolute Eosinophils (auto) 0.0T/MM3 Absolute Basophils (auto) 0.0T/MM3 Prothromb Time International Ratio 1.02 Activated Partial Thromboplast Time 28.5SEC Turbidity < 20 Sodium Level 138MEQ/L Potassium Level 3.5MEQ/L Chloride Level 94MEQ/L Carbon Dioxide Level 30MEQ/L Anion Gap 14MEQ/L Blood Urea Nitrogen 18.0MG/DL Creatinine 0.8MG/DL Glomerular Filtration Rate Calc 73 BUN/Creatinine Ratio 23RATIO Glucose Level 98MG/DL Calculated Osmolality 268MOSM/KG Calcium Level 9.9MG/DL Total Bilirubin 0.90MG/DL Icterus Index < 2 Aspartate Amino Transf (AST/SGOT) 27U/L Alanine Aminotransferase (ALT/SGPT) 28U/L Alkaline Phosphatase 72U/L Troponin I < 0.012ng/ml Total Protein 7.6G/DL Albumin 4.6G/DL Globulin 3.0G/DL Albumin/Globulin Ratio 1.5RATIO Prolactin 33.1NG/ML Chemistry Specimen Hemolysis < 15 Salicylates Level < 1.0MG/DL Acetaminophen Level < 10UG/ML Alcohol, Quantitative <10MG/DL Urine Collection Type Straight cath Urine Color Yellow Urine Turbidity Clear Urine pH 6.5 Urine Specific [place] 1.010 Urine Protein Negative Urine Glucose (UA) Negative Urine Ketones Negative Urine Blood Negative Urine Nitrite Negative Urine Bilirubin Negative Urine Urobilinogen 0.2EU/DL Urine Leukocyte Esterase Negative Urinalysis Comment Microscopic not ind. Urine Opiates Screen NegativeNG/ML Urine Oxycodone Screen NegativeNG/ML Urine Methadone Screen NegativeNG/ML Urine Propoxyphene Screen NegativeNG/ML Urine Barbiturates Screen NegativeNG/ML Urine Tricyclic Antidepressants NegativeNG/ML Urine Phencyclidine Screen NegativeNG/ML Urine Amphetamines Screen NegativeNG/ML Urine Methamphetamines Screen NegativeNG/ML Urine Benzodiazepines Screen NegativeNG/ML Urine Cocaine Screen NegativeNG/ML Urine Cannabinoids Screen NegativeNG/ML Lab Scanned Report REFERENCE [id number] ( M DO) Medications Current ED Medications Ondansetron HCl (Zofran) 4 mg O ONCE IV Last administered on 09/25/16t 17:31; Start 09/25/16 at 17:30; Stop 09/25/16 at 17:31; Status DC Iohexol 1 bottle 1 bottle STK-MED ONCE .ROUTE ; Start 09/25/16 at 18:25; Stop at 18:26; Status DC Sodium Chloride (NS) 100 ml @ As Directed STK-MED ONCE .ROUTE ; Start 09/25/16 at 18:25; Stop 09/25/16 at 18:26; Status DC Sodium Chloride (Iv Flush) 10 ml STK-MED ONCE .ROUTE ; Start 09/25/16 at 18:25; Stop 09/25/16 at 18:26; Status DC (WENCESLAO SIERRA DO) Progress Progress Patient care was transferred to Dr. Wenceslao Sierra at 1815. (MEMO ALANIZ DO) EKG EKG : Rate: 60-100 Rhythm: sinus [place]: normal QRS: normal Intervals: normal ST/T: non-specific changes Interpreted by: signing physician (MEMO ALANIZ DO) Consult/PCP Consult/PCP : Physician Contacted: Devin [facility] Time Called: 19:39 Time of first response: 19:44 Type of discussion: Admit Discussion/PCP Discussion Details Will admit for overnight obs. (WENCESLAO SIERRA DO) CT CT #1: CT: Head no contrast Interpretation: Normal, Reviewed Written Report CT #2: CT: C-Spine no contrast Interpretation: Normal, Reviewed Written Report CT #3: CT: Other (Thoracic) Interpretation: Normal, Reviewed Written Report CT #4: CT: Other (Lumbar) Interpretation: Normal, Reviewed Written Report CT #5: CT: Other (Chest/abd/pelv) Interpretation: Normal, Reviewed Written Report (OCTOBER,WENCESLAO Phelps DO) MEMO ALANIZ DO Sep 25, 2016 18:13 OCTOBERWENCESLAO DO Sep 25, 2016 19:42 CT: Other (Chest/abd/pelv) Interpretation: Normal, Reviewed Written Report (OCTOBER,WENCESLAO ) MEMO ALANIZ DO Sep 25, 2016 18:13 OCTOBERWENCESLAO DO Sep 25, 2016 19:42
[2016-09-25] MEDS ORDERED: ACET325T51 PO (18:15)
[2016-09-25] MEDS ORDERED: IBUP-1724 PO (18:16)
[2016-09-25] MEDS ORDERED: SALINE FLUSH 10ml SYRINGE ONE (18:25)
[2016-09-25] MEDS ORDERED: NORMAL SALINE 100 ML ONE (18:25)
[2016-09-25] MEDS ORDERED: IOHEXOL 300 MG/ML 100ml INJECTION ONE (18:25)
[2016-09-25 18:31] LABS: BLOOD, URINE NEGATIVE (NEGATIVE); COLOR,URINE YELLOW (YELLOW); LEUKOCYTE ESTERASE ,URINE NEGATIVE (NEGATIVE); NITRITE,URINE NEGATIVE (NEGATIVE); UROBILINOGEN,URINE 0.2 EU/DL (NORMAL)
[2016-09-25 18:39] LABS: AMPHETAMINE SCREEN,URINE NEGATIVE; BARBITURATE SCREEN,URINE NEGATIVE; BENZODIAZEPINES SCREEN,URINE NEGATIVE; CANNABINOID SCREEN,URINE NEGATIVE; COCAINE SCREEN,URINE NEGATIVE; METHADONE SCREEN, URINE NEGATIVE; METHAMPHETAMINE SCREEN, URINE NEGATIVE; OPIATE SCREEN,URINE NEGATIVE; PHENCYCLIDINE SCREEN,URINE NEGATIVE; TRICYCLIC ANTIDEPRESSANT,URINE NEGATIVE
--- NOTE | 2016-09-25 19:05 | NUR ---
CT RETURNS FROM CT VIA CART. PATIENT GOT NAUSEATED DURING PROCEDURE.
[2016-09-25] MEDS ORDERED: ONDANSETRON 4mg/2ml INJECTION IV PRN (20:00)
[2016-09-25 20:15] VITALS: Ht 167.6 cm; Wt 94.6 kg
[2016-09-25] MEDS ORDERED: IBUPROFEN 200 MG TABLET PO PRN (20:15)
[2016-09-25] MEDS ORDERED: NORMAL SALINE 1,000 ML IV ONE (20:15)
--- OUTSIDE RECORDS SUMMARY | 2016-09-25 20:15 | XMS REPORT | Continuity of Care Document ---
Author Author [facility] Organization [facility] Address Unknown Phone Unavailable Support Name Relationship Address Phone ALVINO RUANO MD Caregiver [facility]ASCULAR CARE [address] [facility] , [place] [address] [place] [address] THOMAS HARPRE MD Caregiver [address] [place] [address] [place] [phone] HOWARD DAMIAN Caregiver [facility] [address] [place] [address] PATSY KERN Next Of Kin [address] [place] [address] Insurance Providers Payer Name Policy Number Subscriber Name Relationship Benefit Management [facility] [id number] Emily Lord 20 Self Advance Directives Directive [...] F (96.8 - 99.1) Temperature (Calculated Celsius) 35.83239 degrees C (36.0 - 37.3) Temperature Source [...] Has specimen been collected/obtained? Y Urine Specific [place] December 09, 2013 3:30pm <=1.005 L - [...] 25, 2011 1:44pm LAB TEST FORM REQUEST [id number] - Methicillin-Resist S.aureus DNA PCR May 27, [...] Source May 27, 2011 11:28am Nasal - QC-Khs-U-Type Natriuretic Peptide December 09, 2013 10:05am 82 [...] Encounters Encounter Location Date/Time Departed Emergency Room [facility] 11/28/13 3:55pm
--- OUTSIDE RECORDS SUMMARY | 2016-09-25 20:15 | XMS REPORT | Continuity of Care Document ---
Author Author [facility] Organization [facility] Address Unknown Phone Unavailable Support Name Relationship Address Phone ALVINO RUANO MD Caregiver CARDIOVASCULAR CARE [address] [facility] , [place] [address] [place] [address] THOMAS HARPER MD Caregiver [address] [place] [address] [place] [phone] HOWRAD DAMIAN Caregiver [facility] [address] [place] [address] PATSY KERN Next Of Kin [address] [place] [address] Insurance Providers Payer Name Policy Number Subscriber Name Relationship Benefit Management [facility] [id number] Emily Lord 20 Self Advance Directives Directive [...] F (96.8 - 99.1) Temperature (Calculated Celsius) 35.36834 degrees C (36.0 - 37.3) Temperature Source [...] Has specimen been collected/obtained? Y Urine Specific [place] December 09, 2013 3:30pm <=1.005 L - [...] 25, 2011 1:44pm LAB TEST FORM REQUEST [id number] - Methicillin-Resist S.aureus DNA PCR May 27, [...] Source May 27, 2011 11:28am Nasal - IZ-Xlw-G-Type Natriuretic Peptide December 09, 2013 10:05am 84 [...] Encounters Encounter Location Date/Time Departed Emergency Room [facility] 11/28/13 3:55pm
--- OUTSIDE RECORDS SUMMARY | 2016-09-25 20:15 | XMS REPORT | Continuity of Care Document ---
Author Author [facility] Organization [facility] Address Unknown Phone Unavailable Support Name Relationship Address Phone ALVINO RUANO MD Caregiver CARDIOVASCULAR CARE [address] [facility] , [place] [address] [place] [address] THOMAS HARPER MD Caregiver [address] [place] [address] [place] [phone] HOWARD DAMIAN Caregiver [facility] [address] [place] [address] PATSY KERN Next Of Kin [address] [place] [address] Insurance Providers Payer Name Policy Number Subscriber Name Relationship Benefit Management [facility] [id number] Emily Lord 20 Self Advance Directives Directive [...] F (96.8 - 99.1) Temperature (Calculated Celsius) 35.72508 degrees C (36.0 - 37.3) Temperature Source [...] Has specimen been collected/obtained? Y Urine Specific [place] December 09, 2013 3:30pm <=1.005 L - [...] 25, 2011 1:44pm LAB TEST FORM REQUEST [id number] - Methicillin-Resist S.aureus DNA PCR May 27, [...] Source May 27, 2011 11:28am Nasal - RW-Mkh-H-Type Natriuretic Peptide December 09, 2013 10:05am 84 [...] Encounters Encounter Location Date/Time Departed Emergency Room [facility] 11/28/13 3:55pm
[2016-09-25] MEDS: KETOROLAC 30mg/ml INJECTION IV ONE ×2 (20:16→20:35)
--- OUTSIDE RECORDS SUMMARY | 2016-09-25 20:16 | XMS REPORT | Continuity of Care Document ---
Author Author [facility] [employer] Organization [facility] Address Unknown Phone Unavailable Allergies Medications Problems [...] Procedures Code [place] [address] COMPLETE CBC, AUTOMATED HOWARD DAMIAN MD 05/28/2010 [id number] URINALYSIS, AUTO, W/O SCOPE HOWARD DAMIAN MD 06/25/2010 52418 ASSAY OF CK (CPK) HOWARD DAMIAN MD 06/25/2010 13950 RBC SED RATE, NONAUTOMATED HOWARD DAMIAN MD 06/25/2010 38758 ANTINUCLEAR ANTIBODIES HOWARD DAMIAN MD 06/25/2010 00321 DIAGNOSTIC COLONOSCOPY HOWARD DAMIAN MD 12/10/2010 J2250 MIDAZOLAM HCL INJ/1MG HOWARD DAMIAN MD 12/10/2010 J3010 FENTANYL CITRATE INJECITON HOWARD DAMIAN MD 12/10/2010 J3490 Drugs unclassified injection HOWARD DAMIAN MD 12/10/2010 79164 METABOLIC PANEL TOTAL CA HOWARD DAMIAN MD 05/27/2011 95484 COMPLETE CBC, AUTOMATED RICKIE NÚÑEZ, HOWARD Diana 05/27/2011 40494 COMPREHEN METABOLIC PANEL RICKIE NÚÑEZ , HOWARD Diana 08/06/2011 85577 ASSAY THYROID STIM HORMONE RICKIE NÚÑEZ , HOWARD Diana 08/06/2011 05861 COMPLETE CBC, AUTOMATED RICKIE NÚÑEZ, HOWARD Diana 08/06/2011 86362 METABOLIC PANEL TOTAL CA DUSTIN ATKINS, URVASHI 11/04/2012 65862 COMPLETE CBC, AUTOMATED DUSTIN ATKINS, URVASHI 11/04/2012 83923 ASSAY THYROID STIM HORMONE DENZEL ATKINS, RADHA L 03/15/2014 73959 RBC SED RATE, AUTOMATED DENZEL ATKINS, RADHA L 10/18/2014 [id number] METABOLIC PANEL TOTAL CA RICKIE NÚÑEZ, HOWARD Diana 09/13/2015 Results Test Result Range CBC - 11/04/12 12:10 Granulocyte # 3.3 x10^3 3.0-7.0 Granulocyte % 57.1 % 50-70 HCT 41.0 % 37.0-47.0 HGB 13.5 G/DL 12.0-16.0 Lymph # 2.1 x10^3 1.0-4.0 Lymph % 37.5 % 20-50 MCH 29.7 PG 27.0-31.0 MCHC 32.8 G/DL 32.0-36.0 MCV 90 [place] 81-99 [place] # 0.3 x10^3 0.0-0.8 [place] % 5.4 % 1.0-9.0 MPV 8.0 FL [...] Status Pt. Type Provider Facility Loc./Unit Complaint [id number] 10/18/2014 16:42:00 10/18/2014 16:42:00 DIS Outpatient DENZEL ATKINS [facility] [id number] 03/15/2014 13:17:00 03/15/2014 13:17:00 DIS Outpatient DENZEL ATKINS [facility] [id number] 11/04/2012 13:16:00 11/04/2012 13:16:00 DIS Outpatient DUSTIN ATKINS [facility] [id number] 09/13/2015 11:31:00 Document Registration [id number] 08/06/2011 10:14:00 Document Registration [id number] 05/27/2011 06:41:00 Document Registration [id number] 12/10/2010 07:30:00 Document Registration [id number] 06/25/2010 08:47:00 Document Registration [id number] 05/28/2010 12:38:00 Document Registration
--- NOTE | 2016-09-25 20:50 | NUR ---
ADMIT 61 YEAR OLD FEMALE PATIENT ADMITTED TO ROOM 162 WITH SYNCOPE. ADMITTED TO SERVICES OF DR. SIMMS. AWAKE AND DROWSY ON ADMIT. ADMITTED VIA WC. ABLE TO TRANSFER SELF TO THE BED. ORIENTED TO ROOM, CALL LIGHT, PLAN OF CARE. WILL MONITOR.
[2016-09-25] MEDS ORDERED: OMEPRAZOLE 20 MG CAPSULE PO SCH (21:00)
[2016-09-25 21:02] VITALS: BP 126/67; PULSE 83; RESP 16; TEMP 97.6; O2SAT 98
--- NOTE | 2016-09-25 21:27 | HPPDOC ---
HPI - Adult Date DATE: 09/25/16 TIME: 20:03 General Chief Complaint: Unresponsiveness History of Present Illness 61-year-old female with PMH of depression, fibromyalgia, HLD and hypothyroidism presents the emergency department with a chief complaint of altered mental status. Patient was at home leading a mare by her halter immediately prior to arrival to the emergency department when the daughter stepped away for a couple of minutes. The daughter returned and found the patient lying on the ground not responding to her. Patient did come around and has been confused per the daughter. Patient patient notes a moderate dull frontal headache without radiation. Patient is amnestic to the events which happened. Patient also notes diffuse generalized low back pain. Patient denies being ill recently. No other complaints or associated symptoms. Patient symptoms have been persisted in nature since onset. Patient was at home when her symptoms began. She does not note any exacerbating or remitting factors. She denies any abuse or use of illicit or mind altering substances. The events were not witnessed. During my interview this PM patient was still postictal and was mentating slowly. Past Medical History Past Medical History Depression Hypothyroidism GERD HLD Current Medications Home Meds Active Scripts Ondansetron HCl (Zofran) 4 Mg Tablet, 4 MG PO Q6H for NAUSEA, #10 TAB Prov:NATALIA AYALA 10/23/14 Reported Medications Ibuprofen (Ibuprofen) 200 Mg Tablet, 2 TAB PO Q4H Y for PAIN 09/25/16 Acetaminophen (Acetaminophen) 325 Mg Tablet, 650 MG PO BID Y for PAIN 09/25/16 Duloxetine HCl (Duloxetine HCl) 60 Mg Capsule.dr, 60 MG PO DAILY 09/25/16 Bupropion HCl (Bupropion Xl) 150 Mg Tab.er.24h, 150 MG PO DAILY 09/25/16 Omeprazole (Omeprazole) 40 Mg Capsule.dr, 40 MG PO BID 09/25/16 Simvastatin (Simvastatin) 40 Mg Tablet, 40 MG PO HS 09/25/16 Triamterene/Hydrochlorothiazid (Triamterene-Hctz 75-50 mg Tab) 1 Each Tablet, 1 TAB PO DAILY 09/25/16 Levothyroxine Sodium (Levothyroxine Sodium) 50 Mcg Tablet, 50 MCG PO DAILY 09/25/16 Atenolol (Atenolol) 50 Mg Tablet, 50 MG PO BID 09/25/16 Multivitamin (Daily Multiple Vitamin) 1 Each Tablet, 1 TAB PO DAILY 10/11/14 Magnesium Oxide (Magnesium) 400 Mg Capsule, 400 MG PO DAILY, CAP 12/09/13 Cyclobenzaprine Hcl (Flexeril) 10 Mg Tablet, 10 MG PO TID Y for MUSCLE SPASM 12/09/13 Cholecalciferol (Vitamin D) 1,000 Unit Capsule, 2000 UNIT PO DAILY 06/06/11 Allergies: Coded Allergies: doxycycline (Verified Allergy, Severe, THROAT SWELLS, 09/25/16) morphine (Verified Allergy, Intermediate, HIVES/SKIN PEELS, 09/25/16) influenza virus vaccine, specific (Verified Allergy, Unknown, SWELLING, ) EGG FREE VACCINE ONLY nickel (Unverified Allergy, Unknown, 09/25/16) trazodone (Unverified Allergy, Unknown, 09/25/16) tramadol (Verified Adverse Reaction, Mild, SWEATS; BP ISSUES, 09/25/16) cephalexin (Verified Adverse Reaction, Unknown, N/V, 09/25/16) Family History Family History: No history of seizures Social History Smoking Status: Never smoker Substance Use Type: does not use Alcohol Intake: none Review of Systems Constitutional: REPORTS: see HPI Eyes General: REPORTS: see HPI ENMT Balance: see HPI Mouth/Throat: REPORTS: see HPI, DENIES: bleeding gums, blisters, caries, change in swallowing, change in taste, change in voice, drooling, dry mouth, growths, hoarsness, loose teeth, masses, other, pain, painful swallowing, scratchy throat, sore throat, sores, ulcers Cardiovascular DENIES: chest pain, dyspnea on exertion, hx of rheumatic fever, murmur, orthopnea, other, paroxysmal nocturnal dysp Rhythm/Rate: DENIES: bradycardia, irregular beat, other, palpitations, tachycardia Vascular: DENIES: Raynaud's, atrophy, intermittent claudication, other, pallor of an extremity, pedal edema, phlebitis, see HPI, unilateral swelling, varicosities Pulmonary Respiratory: DENIES: cough, dyspnea, exposure to TB, hyperventilation, other, pleuritic chest pain, pneumonia hx, see HPI, sputum, tachypnea GI Upper Abdomen: DENIES: abdominal swelling, dysphagia, food intolerances, heartburn/indigestion, hematemesis, nausea, other, pain, see HPI, vomiting Lower Abdomen: DENIES: blood in stool, caesar-colored stools, constipation, diarrhea, melena, other, pain, painful BM, see HPI Neurological General: DENIES: aphasia, ataxia, blackouts, blindness, change in strength, dysarthria, dysesthesia, fainting, headache, memory disturbances, numbness, other, paralysis/paresis, poor coordination, see HPI, seizures, syncope, tics, tingling, tremor, vertigo, weakness Psychiatric Psychiatric: DENIES: anxiety, depression, emotional instability, hallucinations , irritability, memory impairment, nervousness, other, see HPI, suicidal ideation/attempt Endocrine DENIES: heat/cold intolerance, other, polydipsia, polyphagia, see HPI Physical Exam General General Nourishment: well nourished, well developed Vital Signs Vital Signs Date Time Temp Pulse Resp B/P Pulse Ox O2 Delivery O2 Flow Rate FiO2 09/25/16 17:02 97.7 90 16 161/79 97 Room Air Height (Feet): 5 Height (Inches): 6.00 Respiratory Brief: FOUND: clear all velasco, equal bilaterally Cardiovascular (brief) Cardiac Brief: FOUND: regular rate, regular rhythm Abdomen (brief) Abdominal Brief: FOUND: BS normo active x4, soft Musculoskeletal (brief) Musculoskeletal Brief: NOT FOUND: deformity, extremities move equally, loss of motion, other, spasm, tenderness Integumentary (brief) Integumentary Brief: NOT FOUND: dry, lesions, other, pink, rash, warm Neurologic (brief) Neurological Brief: FOUND: cranial 2-12 intact Neurologic RN Documented GCS Eye Opening: (4)Spontaneous Verbal: (4)Confused Motor: (6)Obeys Commands Total: Psychiatric (brief) FOUND: alert, oriented, other (slow mentation.) Laboratory Laboratory Tests Test 09/25/16 17:13 09/25/16 18:19 09/25/16 18:43 White Blood Count 8.3T/MM3 Red Blood Count 4.28M/MM3 Hemoglobin 13.2GM/DL Hematocrit 38.9% Mean Corpuscular Volume 90.9UM3 Mean Corpuscular Hemoglobin 30.8UUG Mean Corpuscular Hemoglobin Concent 33.9GM/DL RDW Standard Deviation 39.2FL Platelet Count 206T/MM3 Mean Platelet Volume 11.2UM3 Immature Granulocyte % (Auto) 0.1% Neutrophils (%) (Auto) 51.4% Lymphocytes (%) (Auto) 40.7% Monocytes (%) (Auto) 7.6% Eosinophils (%) (Auto) 0.1% Basophils (%) (Auto) 0.1% Absolute Immature Granulocyte (auto 0.01T/MM3 Absolute Neutrophils (auto) 4.3T/MM3 Absolute Lymphocytes (auto) 3.4T/MM3 Absolute Monocytes (auto) 0.6T/MM3 Absolute Eosinophils (auto) 0.0T/MM3 Absolute Basophils (auto) 0.0T/MM3 Prothromb Time International Ratio 1.02 Activated Partial Thromboplast Time 28.5SEC Turbidity < 20 Sodium Level 138MEQ/L Potassium Level 3.5MEQ/L Chloride Level 94MEQ/L Carbon Dioxide Level 30MEQ/L Anion Gap 14MEQ/L Blood Urea Nitrogen 18.0MG/DL Creatinine 0.8MG/DL Glomerular Filtration Rate Calc 73 BUN/Creatinine Ratio 23RATIO Glucose Level 98MG/DL Calculated Osmolality 268MOSM/KG Calcium Level 9.9MG/DL Total Bilirubin 0.90MG/DL Icterus Index < 2 Aspartate Amino Transf (AST/SGOT) 27U/L Alanine Aminotransferase (ALT/SGPT) 28U/L Alkaline Phosphatase 72U/L Troponin I < 0.012ng/ml Total Protein 7.6G/DL Albumin 4.6G/DL Globulin 3.0G/DL Albumin/Globulin Ratio 1.5RATIO Prolactin 33.1NG/ML Chemistry Specimen Hemolysis < 15 Salicylates Level < 1.0MG/DL Acetaminophen Level < 10UG/ML Alcohol, Quantitative <10MG/DL Urine Collection Type Straight cath Urine Color Yellow Urine Turbidity Clear Urine pH 6.5 Urine Specific [place] 1.010 Urine Protein Negative Urine Glucose (UA) Negative Urine Ketones Negative Urine Blood Negative Urine Nitrite Negative Urine Bilirubin Negative Urine Urobilinogen 0.2EU/DL Urine Leukocyte Esterase Negative Urinalysis Comment Microscopic not ind. Urine Opiates Screen NegativeNG/ML Urine Oxycodone Screen NegativeNG/ML Urine Methadone Screen NegativeNG/ML Urine Propoxyphene Screen NegativeNG/ML Urine Barbiturates Screen NegativeNG/ML Urine Tricyclic Antidepressants NegativeNG/ML Urine Phencyclidine Screen NegativeNG/ML Urine Amphetamines Screen NegativeNG/ML Urine Methamphetamines Screen NegativeNG/ML Urine Benzodiazepines Screen NegativeNG/ML Urine Cocaine Screen NegativeNG/ML Urine Cannabinoids Screen NegativeNG/ML Lab Scanned Report REFERENCE [id number] Sepsis Diagnostic Criteria Sepsis Confirmed/Suspected Infection: No Assessment & Plan Problems: (1) Altered mental status Status: Acute Qualifiers: Altered mental status type: unspecified Qualified Codes: R41.82 - Altered mental status, unspecified Assessment & Plan: likely postisctal, slowly resolving. Patient prolactin 33. Could be due to seizure vs polypharmacy. Patient denies seizure HX in the past. Continue neuro checks overnight. Neurology consult in the AM. (2) Syncope and collapse Status: Acute Plan/Intensity of Service unclear if due to seizure vs polypharmacy. Continue to monitor on tele overnight. DVT Prophylaxis: SCD'S Code Status Full Code Hospital Course Summary Disclaimer The hospital course summary below is not to be considered part of the above Progress Note. PEYTON MCCONNELL MD Sep 25, 2016 20:06
[2016-09-25] MEDS: NORMAL SALINE 1,000 ML IV SCH (21:46)
[2016-09-25] MEDS ORDERED: SIMVASTATIN 40 MG TABLET PO SCH (22:00)
[2016-09-25] MEDS: ONDANSETRON 4 MG TABLET PO SCH (22:08)
[2016-09-25] MEDS: ATENOLOL 50 MG TABLET PO SCH (22:08)
[2016-09-25] MEDS: ACETAMINOPHEN 325 MG TABLET PO PRN (23:56)
[2016-09-26] VITALS (16 sets, daily range): BP systolic 100–140; BP diastolic 49–77; PULSE 67–80; RESP 14–18; TEMP 95.9–97.1; O2SAT 94–98
--- NOTE | 2016-09-26 00:40 | NUR ---
HEADACHE: PT COMPLAINED OF A HEADACHE, 7/10 (LOCATION: FONTAL LOBE). OFFERED MOTRIN OR TYLENOL, PT CHOSE TYLENOL. WILL CONTINUE TO MONITOR.
[2016-09-26] MEDS: ONDANSETRON 4 MG TABLET PO SCH ×4 (02:25→20:01)
[2016-09-26] MEDS: OMEPRAZOLE 20 MG CAPSULE PO SCH ×2 (06:36→17:55)
--- NOTE | 2016-09-26 07:20 | NUR ---
SHIFT REPORT: PT IS A&OX3, HAS A FLAT AFFECT. SLEPT IN THE ROOM ALL NIGHT AND LEFT AROUND 4:00 AM THIS MORNING. PT IS UP TO BATHROOM WITH STANDBY ASSIST WITH GOOD URINE OUTPUT. VSS. PT COMPLAINED OF FRONTAL LOBE HEADACHE (SEE EMAR FOR PAIN MED ADMINISTRATION). PT IS ON TELEMETRY, TAKES MEDS WHOLE; ON A CLEAR LIQUID DIET; NEURO CHECKS Q4 HOURS. CALL LIGHT WITHIN REACH, BED ALARM ON.
[2016-09-26] MEDS: ACETAMINOPHEN 325 MG TABLET PO PRN (07:21)
[2016-09-26] MEDS ORDERED: LEVOTHYROXINE 50 MCG TABLET PO SCH (07:30)
--- NOTE | 2016-09-26 08:03 | DI ---
Indication: ITS.REASON: , Found unconscious and unresponsive, back pain PROCEDURE: CT CHEST/ABD/PELVIS WC: Encounter: Subsequent Comparison: None Technique: Axial CT images were performed through the chest, abdomen and pelvis after the administration of intravenous contrast. Coronal and sagittal two-dimensional reformats. Automated Exposure Control and Iterative Reconstruction dose reducing techniques were utilized. Contrast: Omnipaque 300 100 mL Findings: Chest: The lungs are grossly clear. No pneumothorax, pneumonia or pleural effusion. The central airways are patent. No axillary or mediastinal adenopathy. Heart size is normal. Great vessels are grossly normal. Abdomen/pelvis: The liver is fatty infiltrated without enhancing mass or bile duct dilatation. The gallbladder is surgically absent. The spleen, pancreas and adrenal glands are within normal limits. Kidneys are normal. No abdominal or pelvic lymphadenopathy. Uterus is surgically absent. No evidence of a bowel obstruction. Bone windows show no acute displaced fractures. Impression: No acute abnormality seen within the chest, abdomen or pelvis. There is a preliminary report by virtual radiologic. .
--- NOTE | 2016-09-26 08:07 | DI ---
Indication: ITS.REASON: ams, possible trauma PROCEDURE: CT HEAD W/O CONTRAST: Encounter: Initial Comparison: None Technique: Axial CT images through the head were performed without contrast. Iterative Reconstruction dose reducing technique was utilized. FINDINGS: The ventricles are of normal size, shape, and configuration for the patient's age. There is no evidence of acute intracranial hemorrhage, midline displacement, or mass effect. There are scattered areas of low attenuation in the white matter which most likely represent changes of chronic microvascular ischemia. The CT attenuation of the brain parenchyma is otherwise normal within the cerebellum, brain stem, and cerebral hemispheres. The tympanic cavities and mastoid air cells are free of appreciable disease. There are no definite fractures of the skull base, calvarium, or visualized portion of the midface. IMPRESSION: No CT evidence of acute traumatic intracranial injury. There is a preliminary report by virtual radiologic. .
--- NOTE | 2016-09-26 08:08 | DI ---
Indication: ITS.REASON: Neck pain PROCEDURE: CT CERVICAL SPINE W/O CONTRAST: Encounter: Initial Comparison: None Technique: Axial CT images through the cervical spine were performed without contrast. Coronal and sagittal reformatted images were also obtained. Automated Exposure Control and Iterative Reconstruction dose reducing techniques were utilized. FINDINGS: Motion artifact. The alignment of the cervical spine is straightened. Multilevel degenerative changes are present. There is no evidence of acute fracture or subluxation of the cervical spine. The facet joints are well aligned with preservation of the intervertebral disk and facet joints. The atlantoaxial articulation, dens, and upper cervical spine demonstrate no subluxation. There is no evidence of significant spinal stenosis, foraminal compromise, or significant disk herniation. The paraspinal soft tissues and spinal canal appear unremarkable. IMPRESSION: No acute traumatic abnormality of the cervical spine. There is a preliminary report by virtual radiologic. .
--- NOTE | 2016-09-26 08:09 | DI ---
Indication: ITS.REASON: Possible trauma, Back pain PROCEDURE: CT THORACIC SPINE W/O CONTRAST: Encounter: Initial Comparison: None: Technique: Axial noncontrast CT imaging of the thoracic spine was performed with coronal and sagittal two-dimensional reformats. Automated Exposure Control and Iterative Reconstruction dose reducing techniques were utilized. FINDINGS: Alignment of the thoracic spine is normal for the patient's age. There are minimal, age appropriate, degenerative changes within the intervertebral disk and facet joints in the thoracic spine. No fractures are evident in the thoracic spine. The vertebral bodies and facet joints are normally aligned. There is no evidence of significant spinal stenosis, foraminal compromise, epidural hematoma, or significant disk herniation. The paraspinal soft tissues and central spinal canal appear unremarkable. IMPRESSION: No acute traumatic abnormality of the thoracic spine. There is a preliminary report by virtual radiologic. .
--- NOTE | 2016-09-26 08:11 | DI ---
Indication: ITS.REASON: Possible trauma, back pain PROCEDURE: CT LUMBAR SPINE W/O CONTRAST: Encounter: Initial Comparison: None Technique: Axial noncontrast CT imaging of the lumbar spine was performed with coronal and sagittal two-dimensional reformats. Automated Exposure Control and Iterative Reconstruction dose reducing techniques were utilized. FINDINGS: The alignment of the lumbar spine is shows degenerative grade 1 anterolisthesis of L4 on L5. No fractures or traumatic subluxation of the lumbar spine is evident. The facet joints are well aligned with preservation of the intervertebral disk and facet joints. There are age appropriate degenerative changes within the intervertebral disks and facet joints in the lower lumbar region. The paraspinal soft tissues and spinal canal are otherwise unremarkable in appearance. IMPRESSION: No evidence for acute traumatic injury of the lumbar spine. There is a preliminary report by virtual radiologic. .
[2016-09-26] MEDS: NORMAL SALINE 1,000 ML IV SCH (08:18)
[2016-09-26] MEDS: ATENOLOL 50 MG TABLET PO SCH (08:39)
[2016-09-26] MEDS ORDERED: DULOXETINE 60 MG CAPSULE PO SCH (09:00)
[2016-09-26] MEDS ORDERED: TRIAMTERENE PO SCH (09:00)
[2016-09-26] MEDS ORDERED: HCTZ PO SCH (09:00)
[2016-09-26] MEDS ORDERED: BuPROPion XL (24 HR) 150 MG TABLET PO SCH (09:00)
[2016-09-26] MEDS ORDERED: METOCLOPRAMIDE 10mg/2ml INJECTION IV PRN (11:15)
[2016-09-26] MEDS ORDERED: HYDROMORPHONE 2mg/ml INJECTION IV PRN (12:15)
[2016-09-26] MEDS ORDERED: POTASSIUM CHLORIDE 10 MEQ TABLET PO ONE (13:00)
[2016-09-26] MEDS ORDERED: CYCLOBENZAPRINE 10 MG TABLET PO PRN (13:00)
--- NOTE | 2016-09-26 14:53 | CONSF ---
DATE OF CONSULTATION 09/26/[address] [place] CHIEF COMPLAINT The patient's chief complaint is alteration of awareness and loss of consciousness. HISTORY OF PRESENT ILLNESS The patient is a 61-year-old year old female with the history of hypothyroidism, depression and myalgia.. The patient was in her normal state of health earlier in the morning yesterday. She was able to drive herself to work and had no problem during work. On her way home the patient became slightly unaware of her surroundings. She was able to get home and she has vague memory about that. Later at home the patient was found unresponsive on the ground by her daughter. She had no convulsion or seizure activities. The patient was taken to the emergency room. She continued to be unresponsive until she got to the emergency room. At that time the patient had no recollection to the event. She had no focal weakness or numbness. She has been complaining of headache since then. This has been fluctuating in severity. She has had no neck pain and no other body injuries. She had a CT of the head that was unremarkable. She also had a CTs of her spine which were unremarkable. Her labs were unremarkable other than a slightly elevated BUN. The patient was admitted to [facility]. She has been stable since then with al moderate headache recurring off and on. She also complains of ringing in the years which she has never had before. OBJECTIVE On physical examination the patient was awake, alert, oriented x 3. Pupils were round, reactive and equal. Extraocular muscles were intact. Visual velasco were full. Speech was fluent. Facial motor and sensory were normal. Motor examination in the upper and the upper extremities were 5/5. Sensory examination was symmetrical for light touch, pinprick and temperature sensation. Vibration sensation in the toes was normal. Deep tendon reflexes were 2/4. Coordination for [id number] and [id number] were normal. Funduscopic examination was unremarkable. ASSESSMENT 1. Alteration of awareness followed by loss of consciousness and collapse suspicious for encephalopathy and seizure. The patient has no prior history of loss of consciousness or collapses. Her blood pressure has been in the normal range throughout her event. She had no focal neurological deficit suspicious for stroke or other focal brain injuries. 2. Syncope is less likely in this clinical setting due to the prolonged confusion and loss of awareness to the event. PLAN 1. Obtain MRI of the brain with and without contrast to check for any focal or diffuse brain abnormalities. 2. Spinal tap to check for any infectious process and inflammation. 3. Provide good fluid intake. 4. Avoid medication that has a tendency to increase serotonin to avoid having serotonin syndrome which is less likely in this clinical setting. 5. Consider having an EEG if the patient has more similar spells in the future. Thank you.. SKYLER
[2016-09-26 15:36] LABS: COLOR,CSF COLORLESS
[2016-09-26 15:42] LABS: GLUCOSE,CSF 64 MG/DL (40-70); PROTEIN,CSF 45 MG/DL (12-60)
[2016-09-26] MEDS ORDERED: SALINE FLUSH 10ml SYRINGE ONE (15:42)
[2016-09-26] MEDS ORDERED: GADOBUTROL 10mMol/10ml INJECTION IV ONE (15:42)
--- NOTE | 2016-09-26 16:09 | DI ---
INDICATION: ITS.REASON Ordering physician:ARJUN CLAY MD Procedure:LUMBAR PUNCTURE (RADIOLOGY) LUMBAR PUNCTURE: The procedure, including the benefits, risks, and alternatives were explained in detail to the patient. All of her questions were answered. They were given the option to decline the procedure. They stated that they understood and wished to proceed. Informed consent was obtained. A pre-procedural timeout was done to verify the correct patient and proper procedure. Using sterile technique, local Xylocaine anesthesia, and fluoroscopic guidance throughout, a 20 G spinal needle was advanced from a posterior approach into the subarachnoid space at the L2-3 level. A fluoroscopic image was then obtained and archived. Removal of the stylet showed clear colorless CSF. Opening pressure was 22 centimeters of water when measured in the prone position. Then 12 cc of CSF was taken off and sent to the lab for the requested studies. The needle was removed. The procedure was completed without complication. Following this, the patient was transferred to the recovery room and given discharge instructions. Impression: Successful lumbar puncture performed with 12 cc of CSF removed and sent to lab. Fluoroscopy dose: 4.20 mGy (Cumulative air kerma) Joselito Garsia RPA/ELLIE performed this under my personal supervision. .
[2016-09-26 16:30] LABS: BASOPHILS,CSF 0 %; EOSINOPHILS,CSF 0 %; LYMPHOCYTES,CSF 100 %; MONOCYTES,CSF 0 %; NEUTROPHILS,CSF 0 %
--- NOTE | 2016-09-26 16:30 | NUR ---
STATUS PT ALERT AND ORIENTED X3. PT ON RA, DENIES SOA. PT REPORTS BACK PAIN AT THIS TIME, DENIES HEADACHE OR N/V. DRESSING TO LOWER BCK FROM LBP C/D/I, NO REDNESS NOTED. IVF INFUSING ORDERED. WILL CONTINUE TO MONITOR.
--- NOTE | 2016-09-26 17:20 | DI ---
Indication: ITS.REASON: loc, ams, cifuentes PROCEDURE: MRI BRAIN W/WO CONTRAST: Encounter: Initial Comparisons: Head CT from yesterday Technique: Multiplanar, multisequence, MR imaging of the head with and without contrast was acquired. Contrast: 9.5 mL of Gadavist FINDINGS: Exam is limited by motion artifact. The ventricles are of normal size, shape, and contour for the patient's age. There are small nonspecific punctate areas of T2-weighted and T2 FLAIR weighted signal abnormality in the deep frontoparietal white matter that most likely represent small vessel ischemic disease. This is of a degree that is considered to be normal for the patient's age. The brain stem, cerebellum, and cerebral hemispheres otherwise have a normal morphologic appearance as well as MR signal intensity on all pulse sequences. Following intravenous administration of contrast, no areas of abnormal enhancement are evident. There are no areas of restricted diffusion to suggest an acute infarct. There is no evidence of an intracranial mass lesion, intracranial hemorrhage, or hydrocephalus. The visualized portions of the orbits, calvarium, paranasal sinuses, and skull base demonstrate no significant abnormality. IMPRESSION: No acute abnormality seen. .
--- NOTE | 2016-09-26 17:36 | NUR ---
CM SPOKE WITH PT, INTRODUCED SELF, EXPLAINED ROLE, PROVIDED CONTACT INFO. PT DENIED NEEDS. LIVES WITH 15 YEAR OLD DAUGHTER AND DC PLAN IS TO RETURN HOME. MAKENNA, ARVIND RANDOLPH, WILL PICK HER UP WHEN DC'D. NO CURRENT HOME HEALTH, NO DME; PT DENIED THESE NEEDS. Addendum: 09/26/16 at 1737 by ADRIAN FALCON Amended: Links added.
--- NOTE | 2016-09-26 17:38 | NUR ---
DINORAH CRAIN IS 4 Addendum: 09/26/16 at 1738 by ADRIAN FALCON Amended: Links added.
--- NOTE | 2016-09-26 19:34 | NUR ---
DISMISSAL INSTRUCTIONS REVIEWED AT THIS TIME WITH PT AND . PT AND EXPRESS UNDERSTANDING OF DISMISSAL INSTRUCTIONS, INCLUDING BUT NOT LIMITED TO, S/S TO REPORT TO DRJane [facility]. PT EXPRESSES UNDERSTANDING OF NOT DRIVING UNTIL CLEARED BY DR. LORD OR DR. MORA. PT TO SCHEDULE FOLLOW-UP APPOINTMENTS, EXPRESSES UNDERSTANDING. PT EXPRESSES UNDERSTANDING OF MONITORING LUMBAR PUNCTURE SITE FOR REDNESS. PT ALSO EXPRESSES UNDERSTANDING TO REMAIN MOSTLY FLAT IN BED FOR 24 HOURS POST LBP. PT DENIES HEADACHE AT THIS TIME, DENIES N/V. IVL LEFT HAND PATENT.
--- NOTE | 2016-09-26 20:10 | NUR ---
dismissal pt dismissed at 2009 by w/c. family present. pt instructed again on dismissal orders, verbalized understanding. iv dc'd, belongings sent with patient.
[2016-09-27] MEDS ORDERED: MAGNESIUM OXIDE 400 MG TABLET PO SCH (09:00)
--- NOTE | 2016-09-27 20:42 | DSPDOC ---
Discharge Summary Date 09/27/16 Date of admission 09/25/16 Date of discharge 09/26/16 Diagnosis: Syncope/loss of consciousness Altered mental status, transient Hypokalemia Tinnitus Patient was observed with extensive workup including neurological consultation with Dr. Wolfe, negative noncontrast CT head, negative MRI of the brain with and without contrast, and spinal tap. She was clinically stable on the date of discharge. Her syncopal event was unwitnessed and it's unclear if there was an associated head injury which may be contributed to transient confusion. Patient is asked to follow-up with Dr. Stapleton within [address] Wolfe in 2-4 weeks. EEG can be obtained as an outpatient if additional symptoms occur. 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 Please refer to the H&P with multiple addendum's for details of hospitalization and hospital course. ARJUN CLAY MD Sep 27, 2016 20:41
== END 2016-09-26 20:10 | disposition home or self-care (01) ==
LOC: ED 17:01 → EDHOLD 19:49 → MED 20:50
PROVIDERS: ADMIT Internal Medicine; ATTEND Family Medicine
DX: R55 Syncope and collapse (principal); R40.4 Transient alteration of awareness; E87.6 Hypokalemia; H93.13 Tinnitus, bilateral; R51 Headache; F32.9 Major depressive disorder, single episode, unspecified; M79.7 Fibromyalgia; E03.9 Hypothyroidism, unspecified; K21.9 Gastro-esophageal reflux disease without esophagitis; E11.9 Type 2 diabetes mellitus without complications; K58.0 Irritable bowel syndrome with diarrhea; G89.29 Other chronic pain; M54.5 Low back pain; Z79.1 Long term (current) use of non-steroidal anti-inflammatories (NSAID); Z79.899 Other long term (current) drug therapy
CPT/HCPCS: 51701; 62270; 70450; 70553; 71260; 72125; 72128; 72131; 74177; 80053; 80307; 81003; 82945; 84146; 84157; 84484; 85025; 85610; 85730; 87070; 87205; 87483; 89051; 93005; 96361; 96374; 97161; 99218; 99284; A9585; G8979; G8980; J1170; J1885; J2405; J2765; J7030; J7050; Q9967; 80306